=== PATIENT | male | born 1960 | race Caucasian/White ===

== ENCOUNTER 2019-02-15 08:06 | Emergency (ER) | payer OTHER ==
[~2019-02-15] VITALS: Ht 182.9 cm; Wt 93.2 kg
--- NOTE | 2019-02-15 08:52 | NUR ---
FOWLER CATHETER DC'D PER VERBERAL ORDERS.
[2019-02-15 08:55] VITALS: BP 139/88
== END 2019-02-15 08:56 | disposition home or self-care (01) ==
LOC: ER 08:07
DX: Z46.6 Encounter for fitting and adjustment of urinary device (principal); K59.00 Constipation, unspecified
CPT/HCPCS: 99283